=== PATIENT | male | born 1970 | race Caucasian/White ===

== ENCOUNTER 2023-06-18 10:07 | Inpatient (IN) | payer OTHER ==
[2023-06-18 11:08] VITALS: BMI 28.7
[2023-06-18] MEDS ORDERED: NALOXONE HCL 0.4 MG/ML VIAL IM PRN (12:39)
[2023-06-18] MEDS ORDERED: MAG HYDROX/AL HYDROX/SIMETH 30 ML UNIT-DOSE CUP PO PRN (12:39)
[2023-06-18] MEDS ORDERED: LOPERAMIDE HCL 2 MG CAPSULE PO PRN (12:39)
[2023-06-18] MEDS ORDERED: IBUPROFEN 400 MG TABLET (FP) PO PRN (12:39)
[2023-06-18] MEDS ORDERED: NALOXONE HCL (KLOXXADO) 8 MG SPRAY NS PRN (12:39)
[2023-06-18] MEDS ORDERED: MAGNESIUM HYDROX 2400MG/30ML ORAL SUSPENSION 30 ML CUP PO PRN (12:39)
[2023-06-18] MEDS ORDERED: ONDANSETRON *ODT* 4 MG TABLET SL PRN (12:39)
[2023-06-18] MEDS ORDERED: POLYETHYLENE GLYCOL (HEALTHYLAX) 3350 17 GM PACKET PO PRN (12:39)
[2023-06-18] MEDS ORDERED: IBUPROFEN 600 MG TABLET (FP) PO PRN (12:39)
[2023-06-18] MEDS ORDERED: BISMUTH SUBSALICYLATE 524 MG/30 ML PO PRN (12:39)
[2023-06-18] MEDS ORDERED: DICYCLOMINE HCL 10 MG CAPSULE PO PRN (12:39)
[2023-06-18] MEDS ORDERED: LORazepam 2 MG TABLET PO ONE (12:39)
[2023-06-18] MEDS ORDERED: LORazepam 1 MG TABLET PO PRN (12:39)
[2023-06-18] MEDS ORDERED: ACETAMINOPHEN 325 MG TABLET (FP) PO PRN (12:39)
[2023-06-18] MEDS ORDERED: BENZONATATE 200 MG CAPSULE PO PRN (12:39)
[2023-06-18] MEDS ORDERED: guaiFENesin 600 MG TABLET.ER (FP) PO PRN (12:39)
[2023-06-18] MEDS ORDERED: BENZOCAINE/MENTHOL (CHLORASEPTIC ) LOZENGE MM PRN (12:39)
[2023-06-18] MEDS: PRENATAL VITAMINS W/ FOLIC ACID TABLET (FP) PO SCH (13:14)
[2023-06-18] MEDS: NICOTINE 21 MG/24 HOURS TOPICAL PATCH TD SCH (13:14)
[2023-06-18] MEDS ORDERED: NICOTINE 21 MG/24 HOURS TOPICAL PATCH ONE (13:16)
[2023-06-18] MEDS ORDERED: LORazepam 2 MG TABLET ONE (13:17)
[2023-06-18] MEDS ORDERED: PRENATAL VITAMINS W/ FOLIC ACID TABLET (FP) PO ONE (13:17)
[2023-06-18 17:22] LABS: POTASSIUM 4.1 mmol/L (3.5-5.1)
[2023-06-18 17:25] LABS: ALBUMIN 3.6 g/dl (3.4-5.0); CALCIUM 8.8 mg/dL (8.5-10.1); HEMATOCRIT 40.9 % (35.4-49); HEMOGLOBIN 13.5 GM/dL (11.7-16.9); MCH 34.8 pg (25.7-33.7); MCHC 33.1 g/dl (32.0-35.9); MEAN CELL VOLUME 105.1 fl (80-96); MEAN PLT VOLUME 7.6 fl (7.5-11.1); PLATELET COUNT 188 10^3/uL (134-434); RBC 3.89 M/mm3 (4.00-5.60); RDW 13.9 % (11.9-15.9); WHITE BLOOD COUNT 6.8 K/mm3 (4.0-10.0)
[2023-06-18 17:26] LABS: BLOOD UREA NITROGEN 20.6 mg/dL (7-18)
[2023-06-18 17:29] LABS: CREATININE 0.9 mg/dL (0.55-1.3)
[2023-06-18 17:30] LABS: BILIRUBIN,TOTAL 0.6 mg/dL (0.2-1); TOT PROT 6.5 g/dl (6.4-8.2)
[2023-06-18] MEDS: LORazepam 2 MG TABLET PO SCH ×2 (17:39→22:07)
[2023-06-18] MEDS: MELATONIN 5 MG TABLETS PO SCH (22:07)
[2023-06-18] MEDS: THIAMINE HCL 100 MG TABLET (FP) PO SCH (22:07)
[2023-06-19] MEDS: LORazepam 2 MG TABLET PO SCH ×4 (05:54→22:02)
[2023-06-19] MEDS: NICOTINE 21 MG/24 HOURS TOPICAL PATCH TD SCH (10:21)
[2023-06-19] MEDS: PRENATAL VITAMINS W/ FOLIC ACID TABLET (FP) PO SCH (10:21)
[2023-06-19] MEDS: THIAMINE HCL 100 MG TABLET (FP) PO SCH (22:01)
[2023-06-19] MEDS: MELATONIN 5 MG TABLETS PO SCH (22:01)
[2023-06-19] MEDS: METHOCARBAMOL 500 MG TABLET PO PRN (22:01)
[2023-06-19] MEDS: hydrOXYzine PAMOATE 25 MG CAPSULE (FP) PO PRN (22:01)
[2023-06-20] MEDS: LORazepam 1 MG TABLET PO SCH ×4 (05:50→22:20)
[2023-06-20] MEDS: PRENATAL VITAMINS W/ FOLIC ACID TABLET (FP) PO SCH (10:29)
[2023-06-20] MEDS: NICOTINE 21 MG/24 HOURS TOPICAL PATCH TD SCH (10:29)
[2023-06-20] MEDS: METHOCARBAMOL 500 MG TABLET PO PRN (10:30)
[2023-06-20] MEDS: THIAMINE HCL 100 MG TABLET (FP) PO SCH (22:20)
[2023-06-20] MEDS: MELATONIN 5 MG TABLETS PO SCH (22:20)
[2023-06-21] MEDS ORDERED: LORazepam 0.5 MG TABLET PO PRN
[2023-06-21] MEDS: LORazepam 0.5 MG TABLET PO SCH ×4 (05:30→22:24)
[2023-06-21] MEDS: NICOTINE 21 MG/24 HOURS TOPICAL PATCH TD SCH (10:17)
[2023-06-21] MEDS: PRENATAL VITAMINS W/ FOLIC ACID TABLET (FP) PO SCH (10:17)
[2023-06-21] MEDS: LACTULOSE 20 GM/30 ML UDC (FOR ORAL USE ONLY) PO SCH ×2 (14:12→22:23)
[2023-06-21] MEDS: MELATONIN 5 MG TABLETS PO SCH (22:23)
[2023-06-21] MEDS: THIAMINE HCL 100 MG TABLET (FP) PO SCH (22:23)
[2023-06-21] MEDS: METHOCARBAMOL 500 MG TABLET PO PRN (22:23)
[2023-06-21] MEDS: hydrOXYzine PAMOATE 25 MG CAPSULE (FP) PO PRN (22:24)
[2023-06-22] MEDS ORDERED: LORazepam 0.5 MG TABLET PO ONE (05:00)
[2023-06-22] MEDS: LACTULOSE 20 GM/30 ML UDC (FOR ORAL USE ONLY) PO SCH ×2 (05:34→14:25)
[2023-06-22] MEDS: NICOTINE 21 MG/24 HOURS TOPICAL PATCH TD SCH (09:59)
[2023-06-22] MEDS: PRENATAL VITAMINS W/ FOLIC ACID TABLET (FP) PO SCH (09:59)
[2023-06-22 17:37] VITALS: BP 125/90; PULSE 83; RESP 18; TEMP 97.8
== END 2023-06-22 18:37 | disposition other institution (70) | DRG 775 ==
LOC: YASAS 10:07 → Y3N 13:46
PROVIDERS: ADMIT Allergy & Immunology; ATTEND Allergy & Immunology
PROC: HZ2ZZZZ Detoxification Services for Substance Abuse Treatment (ICD-10-PCS; principal; 2023-06-18)
DX: F10.230 Alcohol dependence with withdrawal, uncomplicated (principal); F17.210 Nicotine dependence, cigarettes, uncomplicated; F41.1 Generalized anxiety disorder; F33.41 Major depressive disorder, recurrent, in partial remission; F43.10 Post-traumatic stress disorder, unspecified; F41.9 Anxiety disorder, unspecified; E72.20 Disorder of urea cycle metabolism, unspecified; K76.0 Fatty (change of) liver, not elsewhere classified; Z86.59 Personal history of other mental and behavioral disorders; Z91.199 Patient's noncompliance with other medical treatment and regimen due to unspecified reason; Z86.11 Personal history of tuberculosis; Z56.0 Unemployment, unspecified
CPT/HCPCS: 36415; 71045-TC-FY; 80053; 82140; 85027; 86780; 87635; 93005; 93010

== ENCOUNTER 2023-06-22 18:45 | Inpatient (IN) | payer OTHER ==
[2023-06-22] MEDS ORDERED: ACETAMINOPHEN 325 MG TABLET (FP) PO PRN (20:50)
[2023-06-22] MEDS ORDERED: guaiFENesin 600 MG TABLET.ER (FP) PO PRN (20:50)
[2023-06-22] MEDS ORDERED: BENZOCAINE/MENTHOL (CHLORASEPTIC ) LOZENGE MM PRN (20:50)
[2023-06-22] MEDS ORDERED: MAGNESIUM HYDROX 2400MG/30ML ORAL SUSPENSION 30 ML CUP PO PRN (20:50)
[2023-06-22] MEDS ORDERED: NICOTINE POLACRILEX 2 MG GUM BUC PRN (20:50)
[2023-06-22] MEDS ORDERED: POLYETHYLENE GLYCOL (HEALTHYLAX) 3350 17 GM PACKET PO PRN (20:50)
[2023-06-22] MEDS ORDERED: AMMONIUM LACTATE 12% LOTION 225 GM BOTTLE TP PRN (20:50)
[2023-06-22] MEDS ORDERED: LOPERAMIDE HCL 2 MG CAPSULE PO PRN (20:50)
[2023-06-22] MEDS ORDERED: IBUPROFEN 600 MG TABLET (FP) PO PRN (20:50)
[2023-06-22] MEDS ORDERED: BENZONATATE 200 MG CAPSULE PO PRN (20:50)
[2023-06-22] MEDS ORDERED: MAG HYDROX/AL HYDROX/SIMETH 30 ML UNIT-DOSE CUP PO PRN (20:50)
[2023-06-22] MEDS ORDERED: P-EPHED 60MG/TRIPROLIDI 2.5MG TABLET PO PRN (20:50)
[2023-06-22] MEDS ORDERED: COLLOIDAL OATMEAL 1 BAR EACH TP PRN (20:50)
[2023-06-22] MEDS ORDERED: MELATONIN 5 MG TABLETS PO SCH (22:00)
[2023-06-22] MEDS: THIAMINE HCL 100 MG TABLET (FP) PO SCH (22:27)
[2023-06-22] MEDS: METHOCARBAMOL 500 MG TABLET PO PRN (22:27)
[2023-06-22] MEDS: hydrOXYzine PAMOATE 25 MG CAPSULE (FP) PO PRN (22:28)
[2023-06-23] MEDS ORDERED: PANTOPRAZOLE 20 MG TABLET PO PRN (08:27)
[2023-06-23] MEDS ORDERED: MELATONIN 5 MG TABLETS PO SCH (08:30)
[2023-06-23] MEDS: PRENATAL VITAMINS W/ FOLIC ACID TABLET (FP) PO SCH (09:47)
[2023-06-23] MEDS: IBUPROFEN 400 MG TABLET (FP) PO PRN (11:28)
[2023-06-23] MEDS: LACTULOSE 20 GM/30 ML UDC (FOR ORAL USE ONLY) PO SCH ×2 (13:36→21:03)
[2023-06-23] MEDS ORDERED: PANTOPRAZOLE 20 MG TABLET PO SCH (13:45)
[2023-06-23 13:53] LABS: BASO % 0.8 % (0-2.0); EOS % 6.8 % (0-4.5); LYMPH % 19.8 % (8-40); MCH 34.4 pg (25.7-33.7); MCHC 32.4 g/dl (32.0-35.9); MEAN CELL VOLUME 106.1 fl (80-96); MEAN PLT VOLUME 8.3 fl (7.5-11.1); NEUT % 65.6 % (42.8-82.8); PLATELET COUNT 189 10^3/uL (134-434); RBC 4.06 M/mm3 (4.00-5.60); RDW 13.6 % (11.9-15.9); WHITE BLOOD COUNT 7.7 K/mm3 (4.0-10.0)
[2023-06-23 13:59] LABS: INR 0.9 (0.83-1.09); PROTHROMBIN TIME (PATIENT) 10.4 SEC (9.7-13.0)
[2023-06-23 14:24] LABS: ANISOCYTOSIS 2+; MACROCYTOSIS 2+
[2023-06-23 14:35] LABS: BLOOD UREA NITROGEN 13.3 mg/dL (7-18); CALCIUM 9.4 mg/dL (8.5-10.1)
[2023-06-23 14:36] LABS: ALBUMIN 3.5 g/dl (3.4-5.0); MAGNESIUM 2.1 mg/dL (1.8-2.4)
[2023-06-23 14:40] LABS: BILIRUBIN,TOTAL 0.4 mg/dL (0.2-1)
[2023-06-23 15:11] LABS: CREATININE 0.9 mg/dL (0.55-1.3); TOT PROT 6.1 g/dl (6.4-8.2)
[2023-06-23] MEDS: THIAMINE HCL 100 MG TABLET (FP) PO SCH (21:02)
[2023-06-23] MEDS: SUVOREXANT 10 MG TABLET PO PRN (21:04)
[2023-06-23] MEDS: METHOCARBAMOL 500 MG TABLET PO PRN (21:05)
[2023-06-24] MEDS: LACTULOSE 20 GM/30 ML UDC (FOR ORAL USE ONLY) PO SCH ×3 (06:10→21:08)
[2023-06-24] MEDS: FAMOTIDINE 20 MG TABLET PO SCH (09:57)
[2023-06-24] MEDS: PARoxetine HCL 10 MG TABLET PO SCH (09:57)
[2023-06-24] MEDS: PRENATAL VITAMINS W/ FOLIC ACID TABLET (FP) PO SCH (09:58)
[2023-06-24] MEDS: NICOTINE 21 MG/24 HOURS TOPICAL PATCH TD SCH (11:30)
[2023-06-24] MEDS: SUVOREXANT 10 MG TABLET PO PRN (21:08)
[2023-06-24] MEDS: THIAMINE HCL 100 MG TABLET (FP) PO SCH (21:08)
[2023-06-24] MEDS: METHOCARBAMOL 500 MG TABLET PO PRN (21:09)
[2023-06-25] MEDS: LACTULOSE 20 GM/30 ML UDC (FOR ORAL USE ONLY) PO SCH ×3 (05:58→21:29)
[2023-06-25] MEDS: PRENATAL VITAMINS W/ FOLIC ACID TABLET (FP) PO SCH (09:56)
[2023-06-25] MEDS: PARoxetine HCL 10 MG TABLET PO SCH (09:56)
[2023-06-25] MEDS: FAMOTIDINE 20 MG TABLET PO SCH (09:56)
[2023-06-25] MEDS: NICOTINE 21 MG/24 HOURS TOPICAL PATCH TD SCH (09:56)
[2023-06-25] MEDS: THIAMINE HCL 100 MG TABLET (FP) PO SCH (21:29)
[2023-06-25] MEDS: METHOCARBAMOL 500 MG TABLET PO PRN (21:30)
[2023-06-26] MEDS: LACTULOSE 20 GM/30 ML UDC (FOR ORAL USE ONLY) PO SCH ×3 (06:17→21:09)
[2023-06-26] MEDS: PRENATAL VITAMINS W/ FOLIC ACID TABLET (FP) PO SCH (10:01)
[2023-06-26] MEDS: FAMOTIDINE 20 MG TABLET PO SCH (10:01)
[2023-06-26] MEDS: PARoxetine HCL 10 MG TABLET PO SCH (10:02)
[2023-06-26] MEDS: NICOTINE 21 MG/24 HOURS TOPICAL PATCH TD SCH (10:02)
[2023-06-26] MEDS: THIAMINE HCL 100 MG TABLET (FP) PO SCH (21:08)
[2023-06-26] MEDS: SUVOREXANT 10 MG TABLET PO PRN (21:08)
[2023-06-26] MEDS: METHOCARBAMOL 500 MG TABLET PO PRN (21:08)
[2023-06-27] MEDS: LACTULOSE 20 GM/30 ML UDC (FOR ORAL USE ONLY) PO SCH ×3 (06:04→21:13)
[2023-06-27] MEDS: NICOTINE 21 MG/24 HOURS TOPICAL PATCH TD SCH (09:36)
[2023-06-27] MEDS: FAMOTIDINE 20 MG TABLET PO SCH (09:37)
[2023-06-27] MEDS: PARoxetine HCL 10 MG TABLET PO SCH (09:37)
[2023-06-27] MEDS: PRENATAL VITAMINS W/ FOLIC ACID TABLET (FP) PO SCH (09:37)
[2023-06-27] MEDS: THIAMINE HCL 100 MG TABLET (FP) PO SCH (21:11)
[2023-06-27] MEDS: SUVOREXANT 10 MG TABLET PO PRN (21:12)
[2023-06-27] MEDS: METHOCARBAMOL 500 MG TABLET PO PRN (21:12)
[2023-06-28] MEDS: LACTULOSE 20 GM/30 ML UDC (FOR ORAL USE ONLY) PO SCH ×3 (06:26→21:12)
[2023-06-28] MEDS: PARoxetine HCL 10 MG TABLET PO SCH (09:49)
[2023-06-28] MEDS: PRENATAL VITAMINS W/ FOLIC ACID TABLET (FP) PO SCH (09:49)
[2023-06-28] MEDS: NICOTINE 21 MG/24 HOURS TOPICAL PATCH TD SCH (09:49)
[2023-06-28] MEDS: FAMOTIDINE 20 MG TABLET PO SCH (09:49)
[2023-06-28] MEDS: THIAMINE HCL 100 MG TABLET (FP) PO SCH (21:12)
[2023-06-28] MEDS: SUVOREXANT 10 MG TABLET PO PRN (21:13)
[2023-06-29] MEDS: LACTULOSE 20 GM/30 ML UDC (FOR ORAL USE ONLY) PO SCH ×3 (06:11→21:27)
[2023-06-29] MEDS: NICOTINE 21 MG/24 HOURS TOPICAL PATCH TD SCH (09:49)
[2023-06-29] MEDS: PRENATAL VITAMINS W/ FOLIC ACID TABLET (FP) PO SCH (09:50)
[2023-06-29] MEDS: FAMOTIDINE 20 MG TABLET PO SCH (09:50)
[2023-06-29] MEDS: PARoxetine HCL 10 MG TABLET PO SCH (09:50)
[2023-06-29] MEDS: SUVOREXANT 10 MG TABLET PO PRN (21:28)
[2023-06-29] MEDS: THIAMINE HCL 100 MG TABLET (FP) PO SCH (21:28)
[2023-06-30] MEDS: LACTULOSE 20 GM/30 ML UDC (FOR ORAL USE ONLY) PO SCH ×3 (06:09→21:34)
[2023-06-30] MEDS: PARoxetine HCL 10 MG TABLET PO SCH (09:46)
[2023-06-30] MEDS: FAMOTIDINE 20 MG TABLET PO SCH (09:46)
[2023-06-30] MEDS: PRENATAL VITAMINS W/ FOLIC ACID TABLET (FP) PO SCH (09:47)
[2023-06-30] MEDS: NICOTINE 21 MG/24 HOURS TOPICAL PATCH TD SCH (09:47)
[2023-06-30 14:08] LABS: POTASSIUM 4.5 mmol/L (3.5-5.1)
[2023-06-30 14:13] LABS: CALCIUM 9.9 mg/dL (8.5-10.1)
[2023-06-30 14:14] LABS: BLOOD UREA NITROGEN 11.9 mg/dL (7-18)
[2023-06-30 14:19] LABS: BILIRUBIN,TOTAL 0.4 mg/dL (0.2-1); TOT PROT 7.3 g/dl (6.4-8.2)
[2023-06-30] MEDS: THIAMINE HCL 100 MG TABLET (FP) PO SCH (21:34)
[2023-06-30] MEDS: SUVOREXANT 10 MG TABLET PO PRN (21:35)
[2023-07-01] MEDS: LACTULOSE 20 GM/30 ML UDC (FOR ORAL USE ONLY) PO SCH ×3 (06:07→21:50)
[2023-07-01] MEDS: NICOTINE 21 MG/24 HOURS TOPICAL PATCH TD SCH (09:57)
[2023-07-01] MEDS: PRENATAL VITAMINS W/ FOLIC ACID TABLET (FP) PO SCH (09:58)
[2023-07-01] MEDS: PARoxetine HCL 10 MG TABLET PO SCH (09:58)
[2023-07-01] MEDS: FAMOTIDINE 20 MG TABLET PO SCH (09:58)
[2023-07-01] MEDS: THIAMINE HCL 100 MG TABLET (FP) PO SCH (21:50)
[2023-07-01] MEDS: SUVOREXANT 10 MG TABLET PO PRN (21:50)
[2023-07-02] MEDS: LACTULOSE 20 GM/30 ML UDC (FOR ORAL USE ONLY) PO SCH ×3 (06:17→21:32)
[2023-07-02] MEDS: PRENATAL VITAMINS W/ FOLIC ACID TABLET (FP) PO SCH (09:56)
[2023-07-02] MEDS: NICOTINE 21 MG/24 HOURS TOPICAL PATCH TD SCH (09:56)
[2023-07-02] MEDS: FAMOTIDINE 20 MG TABLET PO SCH (09:56)
[2023-07-02] MEDS: PARoxetine HCL 10 MG TABLET PO SCH (10:08)
[2023-07-02] MEDS: THIAMINE HCL 100 MG TABLET (FP) PO SCH (21:32)
[2023-07-02] MEDS: SUVOREXANT 10 MG TABLET PO PRN (21:33)
[2023-07-03] MEDS: LACTULOSE 20 GM/30 ML UDC (FOR ORAL USE ONLY) PO SCH ×3 (06:38→21:29)
[2023-07-03] MEDS: PARoxetine HCL 10 MG TABLET PO SCH (10:03)
[2023-07-03] MEDS: FAMOTIDINE 20 MG TABLET PO SCH (10:04)
[2023-07-03] MEDS: NICOTINE 21 MG/24 HOURS TOPICAL PATCH TD SCH (10:04)
[2023-07-03] MEDS: PRENATAL VITAMINS W/ FOLIC ACID TABLET (FP) PO SCH (10:04)
[2023-07-03] MEDS: THIAMINE HCL 100 MG TABLET (FP) PO SCH (21:29)
[2023-07-03] MEDS: SUVOREXANT 10 MG TABLET PO PRN (21:30)
[2023-07-04] MEDS: LACTULOSE 20 GM/30 ML UDC (FOR ORAL USE ONLY) PO SCH ×3 (06:19→21:29)
[2023-07-04] MEDS: NICOTINE 21 MG/24 HOURS TOPICAL PATCH TD SCH (09:44)
[2023-07-04] MEDS: PARoxetine HCL 10 MG TABLET PO SCH (09:44)
[2023-07-04] MEDS: FAMOTIDINE 20 MG TABLET PO SCH (09:44)
[2023-07-04] MEDS: PRENATAL VITAMINS W/ FOLIC ACID TABLET (FP) PO SCH (09:45)
[2023-07-04] MEDS: THIAMINE HCL 100 MG TABLET (FP) PO SCH (21:29)
[2023-07-04] MEDS: SUVOREXANT 10 MG TABLET PO PRN (21:30)
[2023-07-05] MEDS: LACTULOSE 20 GM/30 ML UDC (FOR ORAL USE ONLY) PO SCH ×3 (06:17→21:43)
[2023-07-05] MEDS: NICOTINE 21 MG/24 HOURS TOPICAL PATCH TD SCH (09:54)
[2023-07-05] MEDS: FAMOTIDINE 20 MG TABLET PO SCH (09:55)
[2023-07-05] MEDS: PARoxetine HCL 10 MG TABLET PO SCH (09:55)
[2023-07-05] MEDS: PRENATAL VITAMINS W/ FOLIC ACID TABLET (FP) PO SCH (09:55)
[2023-07-05] MEDS: SUVOREXANT 10 MG TABLET PO PRN (21:42)
[2023-07-05] MEDS: THIAMINE HCL 100 MG TABLET (FP) PO SCH (21:43)
[2023-07-05] MEDS: hydrOXYzine PAMOATE 25 MG CAPSULE (FP) PO PRN (21:43)
[2023-07-06] MEDS: LACTULOSE 20 GM/30 ML UDC (FOR ORAL USE ONLY) PO SCH ×3 (06:22→21:27)
[2023-07-06] MEDS: PARoxetine HCL 10 MG TABLET PO SCH (09:42)
[2023-07-06] MEDS: FAMOTIDINE 20 MG TABLET PO SCH (09:42)
[2023-07-06] MEDS: PRENATAL VITAMINS W/ FOLIC ACID TABLET (FP) PO SCH (09:42)
[2023-07-06] MEDS: NICOTINE 21 MG/24 HOURS TOPICAL PATCH TD SCH (09:42)
[2023-07-06] MEDS: hydrOXYzine PAMOATE 25 MG CAPSULE (FP) PO PRN (21:28)
[2023-07-06] MEDS: THIAMINE HCL 100 MG TABLET (FP) PO SCH (21:28)
[2023-07-06] MEDS: SUVOREXANT 10 MG TABLET PO PRN (21:28)
[2023-07-07] MEDS: LACTULOSE 20 GM/30 ML UDC (FOR ORAL USE ONLY) PO SCH ×3 (06:23→21:27)
[2023-07-07] MEDS: NICOTINE 21 MG/24 HOURS TOPICAL PATCH TD SCH (09:48)
[2023-07-07] MEDS: PARoxetine HCL 10 MG TABLET PO SCH (09:48)
[2023-07-07] MEDS: FAMOTIDINE 20 MG TABLET PO SCH (09:48)
[2023-07-07] MEDS: PRENATAL VITAMINS W/ FOLIC ACID TABLET (FP) PO SCH (09:48)
[2023-07-07] MEDS: hydrOXYzine PAMOATE 25 MG CAPSULE (FP) PO PRN (21:27)
[2023-07-07] MEDS: THIAMINE HCL 100 MG TABLET (FP) PO SCH (21:27)
[2023-07-07] MEDS: SUVOREXANT 10 MG TABLET PO PRN (21:27)
[2023-07-08] MEDS: LACTULOSE 20 GM/30 ML UDC (FOR ORAL USE ONLY) PO SCH ×3 (06:38→21:21)
[2023-07-08] MEDS: NICOTINE 21 MG/24 HOURS TOPICAL PATCH TD SCH (09:48)
[2023-07-08] MEDS: PARoxetine HCL 10 MG TABLET PO SCH (09:48)
[2023-07-08] MEDS: FAMOTIDINE 20 MG TABLET PO SCH (09:48)
[2023-07-08] MEDS: PRENATAL VITAMINS W/ FOLIC ACID TABLET (FP) PO SCH (09:49)
[2023-07-08] MEDS ORDERED: NALTREXONE HCL 50 MG TABLET PO SCH (10:00)
[2023-07-08] MEDS: NALTREXONE HCL 50 MG TABLET PO SCH (12:07)
[2023-07-08] MEDS: THIAMINE HCL 100 MG TABLET (FP) PO SCH (21:21)
[2023-07-08] MEDS: SUVOREXANT 10 MG TABLET PO PRN (21:22)
[2023-07-08] MEDS: hydrOXYzine PAMOATE 25 MG CAPSULE (FP) PO PRN (21:23)
[2023-07-09] MEDS: LACTULOSE 20 GM/30 ML UDC (FOR ORAL USE ONLY) PO SCH ×3 (06:39→21:40)
[2023-07-09] MEDS: NICOTINE 21 MG/24 HOURS TOPICAL PATCH TD SCH (10:03)
[2023-07-09] MEDS: PRENATAL VITAMINS W/ FOLIC ACID TABLET (FP) PO SCH (10:03)
[2023-07-09] MEDS: PARoxetine HCL 10 MG TABLET PO SCH (10:03)
[2023-07-09] MEDS: NALTREXONE HCL 50 MG TABLET PO SCH (10:03)
[2023-07-09] MEDS: FAMOTIDINE 20 MG TABLET PO SCH (10:03)
[2023-07-09] MEDS: THIAMINE HCL 100 MG TABLET (FP) PO SCH (21:40)
[2023-07-09] MEDS: hydrOXYzine PAMOATE 25 MG CAPSULE (FP) PO PRN (21:41)
[2023-07-09] MEDS: SUVOREXANT 10 MG TABLET PO PRN (21:41)
[2023-07-10] MEDS: LACTULOSE 20 GM/30 ML UDC (FOR ORAL USE ONLY) PO SCH ×3 (06:16→21:52)
[2023-07-10] MEDS: NICOTINE 21 MG/24 HOURS TOPICAL PATCH TD SCH (09:35)
[2023-07-10] MEDS: NALTREXONE HCL 50 MG TABLET PO SCH (09:36)
[2023-07-10] MEDS: FAMOTIDINE 20 MG TABLET PO SCH (09:36)
[2023-07-10] MEDS: PARoxetine HCL 10 MG TABLET PO SCH (09:36)
[2023-07-10] MEDS: PRENATAL VITAMINS W/ FOLIC ACID TABLET (FP) PO SCH (09:36)
[2023-07-10] MEDS: THIAMINE HCL 100 MG TABLET (FP) PO SCH (21:52)
[2023-07-10] MEDS: SUVOREXANT 10 MG TABLET PO PRN (21:55)
[2023-07-10] MEDS: hydrOXYzine PAMOATE 25 MG CAPSULE (FP) PO PRN (21:55)
[2023-07-11] MEDS: LACTULOSE 20 GM/30 ML UDC (FOR ORAL USE ONLY) PO SCH ×3 (06:17→21:07)
[2023-07-11] MEDS: PARoxetine HCL 10 MG TABLET PO SCH (09:47)
[2023-07-11] MEDS: NICOTINE 21 MG/24 HOURS TOPICAL PATCH TD SCH (09:47)
[2023-07-11] MEDS: NALTREXONE HCL 50 MG TABLET PO SCH (09:47)
[2023-07-11] MEDS: FAMOTIDINE 20 MG TABLET PO SCH (09:47)
[2023-07-11] MEDS: PRENATAL VITAMINS W/ FOLIC ACID TABLET (FP) PO SCH (09:48)
[2023-07-11] MEDS: THIAMINE HCL 100 MG TABLET (FP) PO SCH (21:07)
[2023-07-11] MEDS: hydrOXYzine PAMOATE 25 MG CAPSULE (FP) PO PRN (21:09)
[2023-07-11] MEDS: SUVOREXANT 10 MG TABLET PO PRN (21:44)
[2023-07-12] MEDS: LACTULOSE 20 GM/30 ML UDC (FOR ORAL USE ONLY) PO SCH ×3 (06:17→21:25)
[2023-07-12] MEDS: FAMOTIDINE 20 MG TABLET PO SCH (09:46)
[2023-07-12] MEDS: PRENATAL VITAMINS W/ FOLIC ACID TABLET (FP) PO SCH (09:46)
[2023-07-12] MEDS: NALTREXONE HCL 50 MG TABLET PO SCH (09:46)
[2023-07-12] MEDS: NICOTINE 21 MG/24 HOURS TOPICAL PATCH TD SCH (09:46)
[2023-07-12] MEDS: PARoxetine HCL 10 MG TABLET PO SCH (09:46)
[2023-07-12] MEDS: THIAMINE HCL 100 MG TABLET (FP) PO SCH (21:26)
[2023-07-12] MEDS: hydrOXYzine PAMOATE 25 MG CAPSULE (FP) PO PRN (21:26)
[2023-07-12] MEDS: SUVOREXANT 10 MG TABLET PO PRN (21:27)
[2023-07-13] MEDS: LACTULOSE 20 GM/30 ML UDC (FOR ORAL USE ONLY) PO SCH ×3 (06:18→21:21)
[2023-07-13] MEDS: FAMOTIDINE 20 MG TABLET PO SCH (10:05)
[2023-07-13] MEDS: PRENATAL VITAMINS W/ FOLIC ACID TABLET (FP) PO SCH (10:06)
[2023-07-13] MEDS: NALTREXONE HCL 50 MG TABLET PO SCH (10:06)
[2023-07-13] MEDS: NICOTINE 21 MG/24 HOURS TOPICAL PATCH TD SCH (10:06)
[2023-07-13] MEDS: IBUPROFEN 400 MG TABLET (FP) PO PRN (12:02)
[2023-07-13] MEDS: PARoxetine HCL 10 MG TABLET PO SCH (12:02)
[2023-07-13] MEDS: SUVOREXANT 10 MG TABLET PO PRN (21:21)
[2023-07-13] MEDS: THIAMINE HCL 100 MG TABLET (FP) PO SCH (21:21)
[2023-07-13] MEDS: hydrOXYzine PAMOATE 25 MG CAPSULE (FP) PO PRN (21:21)
[2023-07-14] MEDS: LACTULOSE 20 GM/30 ML UDC (FOR ORAL USE ONLY) PO SCH ×3 (06:20→22:20)
[2023-07-14] MEDS: NICOTINE 21 MG/24 HOURS TOPICAL PATCH TD SCH (10:06)
[2023-07-14] MEDS: PARoxetine HCL 10 MG TABLET PO SCH (10:07)
[2023-07-14] MEDS: PRENATAL VITAMINS W/ FOLIC ACID TABLET (FP) PO SCH (10:07)
[2023-07-14] MEDS: FAMOTIDINE 20 MG TABLET PO SCH (10:07)
[2023-07-14] MEDS: NALTREXONE HCL 50 MG TABLET PO SCH (10:07)
[2023-07-14] MEDS: SUVOREXANT 10 MG TABLET PO PRN (22:20)
[2023-07-14] MEDS: THIAMINE HCL 100 MG TABLET (FP) PO SCH (22:20)
[2023-07-14] MEDS: hydrOXYzine PAMOATE 25 MG CAPSULE (FP) PO PRN (22:21)
[2023-07-15] MEDS: LACTULOSE 20 GM/30 ML UDC (FOR ORAL USE ONLY) PO SCH ×3 (06:13→21:22)
[2023-07-15] MEDS: FAMOTIDINE 20 MG TABLET PO SCH (09:40)
[2023-07-15] MEDS: PARoxetine HCL 10 MG TABLET PO SCH (09:40)
[2023-07-15] MEDS: NICOTINE 21 MG/24 HOURS TOPICAL PATCH TD SCH (09:40)
[2023-07-15] MEDS: PRENATAL VITAMINS W/ FOLIC ACID TABLET (FP) PO SCH (09:41)
[2023-07-15] MEDS: NALTREXONE HCL 50 MG TABLET PO SCH (09:41)
[2023-07-15] MEDS: THIAMINE HCL 100 MG TABLET (FP) PO SCH (21:22)
[2023-07-15] MEDS: SUVOREXANT 10 MG TABLET PO PRN (21:23)
[2023-07-15] MEDS: hydrOXYzine PAMOATE 25 MG CAPSULE (FP) PO PRN (21:23)
[2023-07-16] MEDS: LACTULOSE 20 GM/30 ML UDC (FOR ORAL USE ONLY) PO SCH ×3 (06:27→21:25)
[2023-07-16] MEDS: PARoxetine HCL 10 MG TABLET PO SCH (09:26)
[2023-07-16] MEDS: FAMOTIDINE 20 MG TABLET PO SCH (09:26)
[2023-07-16] MEDS: NICOTINE 21 MG/24 HOURS TOPICAL PATCH TD SCH (09:26)
[2023-07-16] MEDS: PRENATAL VITAMINS W/ FOLIC ACID TABLET (FP) PO SCH (09:27)
[2023-07-16] MEDS: NALTREXONE HCL 50 MG TABLET PO SCH (09:27)
[2023-07-16] MEDS: hydrOXYzine PAMOATE 25 MG CAPSULE (FP) PO PRN (21:25)
[2023-07-16] MEDS: THIAMINE HCL 100 MG TABLET (FP) PO SCH (21:25)
[2023-07-16] MEDS: SUVOREXANT 10 MG TABLET PO PRN (21:26)
[2023-07-17] MEDS: LACTULOSE 20 GM/30 ML UDC (FOR ORAL USE ONLY) PO SCH ×3 (06:19→21:25)
[2023-07-17] MEDS: PRENATAL VITAMINS W/ FOLIC ACID TABLET (FP) PO SCH (09:55)
[2023-07-17] MEDS: NALTREXONE HCL 50 MG TABLET PO SCH (09:55)
[2023-07-17] MEDS: FAMOTIDINE 20 MG TABLET PO SCH (09:55)
[2023-07-17] MEDS: NICOTINE 21 MG/24 HOURS TOPICAL PATCH TD SCH (09:55)
[2023-07-17] MEDS: PARoxetine HCL 10 MG TABLET PO SCH (09:55)
[2023-07-17] MEDS: hydrOXYzine PAMOATE 25 MG CAPSULE (FP) PO PRN (21:25)
[2023-07-17] MEDS: THIAMINE HCL 100 MG TABLET (FP) PO SCH (21:25)
[2023-07-18] MEDS: LACTULOSE 20 GM/30 ML UDC (FOR ORAL USE ONLY) PO SCH ×3 (06:24→21:32)
[2023-07-18] MEDS: NALTREXONE HCL 50 MG TABLET PO SCH (09:46)
[2023-07-18] MEDS: PRENATAL VITAMINS W/ FOLIC ACID TABLET (FP) PO SCH (09:46)
[2023-07-18] MEDS: FAMOTIDINE 20 MG TABLET PO SCH (09:46)
[2023-07-18] MEDS: NICOTINE 21 MG/24 HOURS TOPICAL PATCH TD SCH (09:46)
[2023-07-18] MEDS: PARoxetine HCL 10 MG TABLET PO SCH (09:46)
[2023-07-18] MEDS: THIAMINE HCL 100 MG TABLET (FP) PO SCH (21:32)
[2023-07-18] MEDS: hydrOXYzine PAMOATE 25 MG CAPSULE (FP) PO PRN (21:32)
[2023-07-19] MEDS: LACTULOSE 20 GM/30 ML UDC (FOR ORAL USE ONLY) PO SCH (06:14)
[2023-07-19 07:33] VITALS: BP 105/75; PULSE 100; RESP 18; TEMP 96.6
[2023-07-19] MEDS ORDERED: NALTREXONE MICROSPHERES (VIVITROL) 380 MG DISP.SYRIN IM ONE (08:41)
[2023-07-19] MEDS: PARoxetine HCL 10 MG TABLET PO SCH (09:09)
[2023-07-19] MEDS: PRENATAL VITAMINS W/ FOLIC ACID TABLET (FP) PO SCH (09:10)
[2023-07-19] MEDS: FAMOTIDINE 20 MG TABLET PO SCH (09:10)
[2023-07-19] MEDS: NICOTINE 21 MG/24 HOURS TOPICAL PATCH TD SCH (09:10)
[2023-07-19] MEDS: NALTREXONE HCL 50 MG TABLET PO SCH (09:11)
== END 2023-07-19 09:18 | disposition home or self-care (01) | DRG 772 ==
LOC: YASAS 18:45 → Y3E 18:46
PROVIDERS: ADMIT Allergy & Immunology; ATTEND Psychiatry & Neurology Pain Medicine
PROC: HZ42ZZZ Group Counseling for Substance Abuse Treatment, Cognitive-Behavioral (ICD-10-PCS; principal; 2023-06-22)
DX: F10.20 Alcohol dependence, uncomplicated (principal); F17.210 Nicotine dependence, cigarettes, uncomplicated; F32.9 Major depressive disorder, single episode, unspecified; F41.9 Anxiety disorder, unspecified; F43.10 Post-traumatic stress disorder, unspecified; E72.20 Disorder of urea cycle metabolism, unspecified; K76.0 Fatty (change of) liver, not elsewhere classified; R79.89 Other specified abnormal findings of blood chemistry; Z86.11 Personal history of tuberculosis
CPT/HCPCS: 36415; 80053; 82140; 82272; 82607; 82652; 82746; 83735; 85025; 85610; 86803; J2315

== ENCOUNTER 2023-10-25 16:25 | Inpatient (IN) | payer OTHER ==
[2023-10-25 17:14] VITALS: BMI 28.2
[2023-10-25] MEDS ORDERED: IBUPROFEN 600 MG TABLET (FP) PO PRN (21:43)
[2023-10-25] MEDS ORDERED: P-EPHED 60MG/TRIPROLIDI 2.5MG TABLET PO PRN (21:43)
[2023-10-25] MEDS ORDERED: ACETAMINOPHEN 325 MG TABLET (FP) PO PRN (21:43)
[2023-10-25] MEDS ORDERED: POLYETHYLENE GLYCOL (HEALTHYLAX) 3350 17 GM PACKET PO PRN (21:43)
[2023-10-25] MEDS ORDERED: BENZONATATE 200 MG CAPSULE PO PRN (21:43)
[2023-10-25] MEDS ORDERED: BENZOCAINE/MENTHOL (CHLORASEPTIC ) LOZENGE MM PRN (21:43)
[2023-10-25] MEDS ORDERED: IBUPROFEN 400 MG TABLET (FP) PO PRN (21:43)
[2023-10-25] MEDS ORDERED: MAG HYDROX/AL HYDROX/SIMETH 30 ML UNIT-DOSE CUP PO PRN (21:43)
[2023-10-25] MEDS ORDERED: MAGNESIUM HYDROX 2400MG/30ML ORAL SUSPENSION 30 ML CUP PO PRN (21:43)
[2023-10-25] MEDS ORDERED: COLLOIDAL OATMEAL 1 BAR EACH TP PRN (21:43)
[2023-10-25] MEDS ORDERED: guaiFENesin 600 MG TABLET.ER (FP) PO PRN (21:43)
[2023-10-25] MEDS ORDERED: LOPERAMIDE HCL 2 MG CAPSULE PO PRN (21:43)
[2023-10-25] MEDS ORDERED: MELATONIN 5 MG TABLETS PO SCH (22:00)
[2023-10-25] MEDS ORDERED: MELATONIN 5 MG TABLETS ONE (23:19)
[2023-10-25] MEDS: THIAMINE HCL 100 MG TABLET (FP) PO SCH (23:20)
[2023-10-26] MEDS: PRENATAL VITAMINS W/ FOLIC ACID TABLET (FP) PO SCH (09:52)
[2023-10-26 13:15] LABS: HEMATOCRIT 40.8 % (35.4-49); HEMOGLOBIN 13.7 GM/dL (11.7-16.9); MCH 31.7 pg (25.7-33.7); MCHC 33.5 g/dl (32.0-35.9); MEAN CELL VOLUME 94.7 fl (80-96); MEAN PLT VOLUME 7.4 fl (7.5-11.1); PLATELET COUNT 228 10^3/uL (134-434); RBC 4.32 M/mm3 (4.00-5.60); RDW 15.5 % (11.9-15.9); WHITE BLOOD COUNT 5.1 K/mm3 (4.0-10.0)
[2023-10-26 13:16] LABS: CHLORIDE 104 mmol/L (98-107); POTASSIUM 3.9 mmol/L (3.5-5.1); SODIUM 139 mmol/L (136-145)
[2023-10-26 13:21] LABS: BLOOD UREA NITROGEN 18.4 mg/dL (7-18)
[2023-10-26 13:22] LABS: CALCIUM 9.6 mg/dL (8.5-10.1); GLUCOSE,RANDOM 148 mg/dL (74-106)
[2023-10-26 13:23] LABS: ALBUMIN 3.4 g/dl (3.4-5.0); ANION GAP 7 mmol/L (4-13); CO2 29 mmol/L (21-32)
[2023-10-26 13:24] LABS: SGPT/ALT 159 U/L (13-61)
[2023-10-26 13:25] LABS: CREATININE 0.9 mg/dL (0.55-1.3)
[2023-10-26 13:26] LABS: BILIRUBIN,TOTAL 0.7 mg/dL (0.2-1); SGOT/AST 85 U/L (15-37); TOT PROT 6.2 g/dl (6.4-8.2)
[2023-10-26 13:30] LABS: ALK PHOS 114 U/L (45-117)
[2023-10-26] MEDS: PARoxetine HCL 10 MG TABLET PO SCH (14:43)
[2023-10-26] MEDS: THIAMINE HCL 100 MG TABLET (FP) PO SCH (21:30)
[2023-10-27 07:16] VITALS: RESP 18
[2023-10-27] MEDS: PRENATAL VITAMINS W/ FOLIC ACID TABLET (FP) PO SCH (09:32)
[2023-10-27] MEDS: PARoxetine HCL 10 MG TABLET PO SCH (09:32)
[2023-10-27 13:39] LABS: URINE APPEARANCE CLEAR; URINE BILIRUBIN NEGATIVE (NEGATIVE); URINE COLOR YELLOW; URINE GLUCOSE (UA) NEGATIVE (NEGATIVE); URINE KETONE NEGATIVE (NEGATIVE); URINE LEUK ESTERASE NEGATIVE (NEGATIVE); URINE NITRITE NEGATIVE (NEGATIVE); URINE PROTEIN NEGATIVE (NEGATIVE); URINE UROBILINOGEN 0.2 mg/dL (0.2-1.0)
[2023-10-27] MEDS: LACTULOSE 20 GM/30 ML UDC (FOR ORAL USE ONLY) PO SCH ×2 (14:35→21:10)
[2023-10-27] MEDS: THIAMINE HCL 100 MG TABLET (FP) PO SCH (21:10)
[2023-10-27] MEDS: SUVOREXANT 15 MG TABLET PO PRN (21:11)
[2023-10-27] MEDS ORDERED: SUVOREXANT 10 MG TABLET PO PRN (22:00)
[2023-10-28] MEDS: LACTULOSE 20 GM/30 ML UDC (FOR ORAL USE ONLY) PO SCH ×3 (06:59→21:12)
[2023-10-28] MEDS: PRENATAL VITAMINS W/ FOLIC ACID TABLET (FP) PO SCH (09:46)
[2023-10-28] MEDS: PARoxetine HCL 10 MG TABLET PO SCH (09:46)
[2023-10-28] MEDS: THIAMINE HCL 100 MG TABLET (FP) PO SCH (21:12)
[2023-10-28] MEDS: SUVOREXANT 15 MG TABLET PO PRN (21:12)
[2023-10-29] MEDS: LACTULOSE 20 GM/30 ML UDC (FOR ORAL USE ONLY) PO SCH ×3 (06:36→21:49)
[2023-10-29] MEDS: PARoxetine HCL 10 MG TABLET PO SCH (09:33)
[2023-10-29] MEDS: PRENATAL VITAMINS W/ FOLIC ACID TABLET (FP) PO SCH (09:34)
[2023-10-29] MEDS: SUVOREXANT 15 MG TABLET PO PRN (21:49)
[2023-10-29] MEDS: THIAMINE HCL 100 MG TABLET (FP) PO SCH (21:50)
[2023-10-30] MEDS ORDERED: NALTREXONE MICROSPHERES (VIVITROL) 380 MG DISP.SYRIN IM ONE (06:00)
[2023-10-30 06:54] VITALS: BP 116/74; PULSE 79; TEMP 97.4
[2023-10-30] MEDS: LACTULOSE 20 GM/30 ML UDC (FOR ORAL USE ONLY) PO SCH (06:58)
[2023-10-30] MEDS: PRENATAL VITAMINS W/ FOLIC ACID TABLET (FP) PO SCH (10:20)
[2023-10-30] MEDS: PARoxetine HCL 10 MG TABLET PO SCH (10:20)
== END 2023-10-30 10:30 | disposition home or self-care (01) | DRG 772 ==
LOC: YASAS 16:25 → Y5N 23:59
PROVIDERS: ADMIT Surgery; ATTEND Psychiatry & Neurology Pain Medicine
PROC: HZ42ZZZ Group Counseling for Substance Abuse Treatment, Cognitive-Behavioral (ICD-10-PCS; principal; 2023-10-25)
DX: F10.20 Alcohol dependence, uncomplicated (principal); F17.210 Nicotine dependence, cigarettes, uncomplicated; F10.282 Alcohol dependence with alcohol-induced sleep disorder; F39 Unspecified mood [affective] disorder; F41.9 Anxiety disorder, unspecified; F32.A Depression, unspecified; G47.00 Insomnia, unspecified; K21.9 Gastro-esophageal reflux disease without esophagitis; Z87.19 Personal history of other diseases of the digestive system; Z87.01 Personal history of pneumonia (recurrent)
CPT/HCPCS: 36415; 80053; 80307; 81003; 82962; 85027; 86780; 87635; J2315

== ENCOUNTER 2024-01-01 12:44 | Inpatient (IN) | payer OTHER ==
[2024-01-01 13:29] VITALS: BMI 27.1
[2024-01-01] MEDS ORDERED: NALOXONE HCL (KLOXXADO) 8 MG SPRAY NS PRN (14:22)
[2024-01-01] MEDS ORDERED: IBUPROFEN 400 MG TABLET (FP) PO PRN (14:22)
[2024-01-01] MEDS ORDERED: guaiFENesin 600 MG TABLET.ER (FP) PO PRN (14:22)
[2024-01-01] MEDS ORDERED: BISMUTH SUBSALICYLATE 524 MG/30 ML PO PRN (14:22)
[2024-01-01] MEDS ORDERED: IBUPROFEN 600 MG TABLET (FP) PO PRN (14:22)
[2024-01-01] MEDS ORDERED: BENZONATATE 200 MG CAPSULE PO PRN (14:22)
[2024-01-01] MEDS ORDERED: LOPERAMIDE HCL 2 MG CAPSULE PO PRN (14:22)
[2024-01-01] MEDS ORDERED: NALOXONE HCL 0.4 MG/ML VIAL IM PRN (14:22)
[2024-01-01] MEDS ORDERED: MAG HYDROX/AL HYDROX/SIMETH 30 ML UNIT-DOSE CUP PO PRN (14:22)
[2024-01-01] MEDS ORDERED: NICOTINE POLACRILEX 4 MG GUM BUC PRN (14:22)
[2024-01-01] MEDS ORDERED: POLYETHYLENE GLYCOL (HEALTHYLAX) 3350 17 GM PACKET PO PRN (14:22)
[2024-01-01] MEDS ORDERED: MAGNESIUM HYDROX 2400MG/30ML ORAL SUSPENSION 30 ML CUP PO PRN (14:22)
[2024-01-01] MEDS ORDERED: ACETAMINOPHEN 325 MG TABLET (FP) PO PRN (14:22)
[2024-01-01] MEDS ORDERED: NICOTINE 21 MG/24 HOURS TOPICAL PATCH TD PRN (14:22)
[2024-01-01] MEDS ORDERED: BENZOCAINE/MENTHOL (CHLORASEPTIC ) LOZENGE MM PRN (14:22)
[2024-01-01] MEDS ORDERED: DICYCLOMINE HCL 10 MG CAPSULE PO PRN (14:22)
[2024-01-01] MEDS ORDERED: ALBUTEROL SO4 HFA INHALER IH PRN (14:26)
[2024-01-01] MEDS: LORazepam 1 MG TABLET PO PRN (18:11)
[2024-01-01] MEDS: LORazepam 2 MG TABLET PO SCH (18:13)
[2024-01-01] MEDS: PANTOPRAZOLE 40 MG TABLET PO SCH (18:17)
[2024-01-01] MEDS: PANTOPRAZOLE 40 MG TABLET PO ONE (18:17)
[2024-01-01] MEDS: THIAMINE HCL 100 MG TABLET (FP) PO SCH (22:55)
[2024-01-01] MEDS: MELATONIN 5 MG TABLETS PO SCH (22:56)
[2024-01-02] MEDS: PRENATAL VITAMINS W/ FOLIC ACID TABLET (FP) PO SCH (10:23)
[2024-01-02] MEDS: METHOCARBAMOL 500 MG TABLET PO PRN (10:23)
[2024-01-02 10:54] LABS: POTASSIUM 4.1 mmol/L (3.5-5.1)
[2024-01-02 10:56] LABS: CALCIUM 9.2 mg/dL (8.5-10.1)
[2024-01-02 10:58] LABS: ALBUMIN 3.7 g/dl (3.4-5.0)
[2024-01-02 11:00] LABS: CREATININE 0.8 mg/dL (0.55-1.3)
[2024-01-02 11:01] LABS: TOT PROT 6.2 g/dl (6.4-8.2)
[2024-01-02 11:02] LABS: BILIRUBIN,TOTAL 1.5 mg/dL (0.2-1)
[2024-01-02 11:14] LABS: HEMATOCRIT 38.7 % (35.4-49); HEMOGLOBIN 12.9 GM/dL (11.7-16.9); MCH 32.2 pg (25.7-33.7); MCHC 33.3 g/dl (32.0-35.9); MEAN CELL VOLUME 96.5 fl (80-96); MEAN PLT VOLUME 7.6 fl (7.5-11.1); PLATELET COUNT 57 10^3/uL (134-434); RBC 4.01 M/mm3 (4.00-5.60); RDW 14.6 % (11.9-15.9); WHITE BLOOD COUNT 5.8 K/mm3 (4.0-10.0)
[2024-01-02] MEDS: ONDANSETRON *ODT* 4 MG TABLET SL PRN (12:08)
[2024-01-02] MEDS: GABAPENTIN 100 MG CAPSULE PO SCH (22:41)
[2024-01-02] MEDS: PARoxetine HCL 20 MG TABLET PO SCH (22:41)
[2024-01-03] MEDS: LORazepam 1 MG TABLET PO SCH (05:41)
[2024-01-03] MEDS: LACTULOSE 20 GM/30 ML UDC (FOR ORAL USE ONLY) PO SCH (18:44)
[2024-01-04] MEDS ORDERED: LORazepam 0.5 MG TABLET PO PRN
[2024-01-04] MEDS: LORazepam 0.5 MG TABLET PO SCH (05:38)
[2024-01-04 10:01] VITALS: BP 102/73; PULSE 116; RESP 16; TEMP 98
[2024-01-04 10:53] LABS: POTASSIUM 3.7 mmol/L (3.5-5.1)
[2024-01-04 11:00] LABS: ALBUMIN 3.8 g/dl (3.4-5.0); CREATININE 0.9 mg/dL (0.55-1.3)
[2024-01-04 11:02] LABS: BILIRUBIN,TOTAL 1.4 mg/dL (0.2-1); TOT PROT 6.6 g/dl (6.4-8.2)
[2024-01-04 11:03] LABS: CALCIUM 9.8 mg/dL (8.5-10.1)
[2024-01-05] MEDS ORDERED: LORazepam 0.5 MG TABLET PO ONE (05:00)
== END 2024-01-04 10:10 | disposition home or self-care (01) | DRG 775 ==
LOC: YASAS 12:44 → Y6N 17:20
PROVIDERS: ADMIT Allergy & Immunology; ATTEND Surgery
PROC: HZ2ZZZZ Detoxification Services for Substance Abuse Treatment (ICD-10-PCS; principal; 2024-01-01)
DX: F10.230 Alcohol dependence with withdrawal, uncomplicated (principal); F17.210 Nicotine dependence, cigarettes, uncomplicated; F33.41 Major depressive disorder, recurrent, in partial remission; F10.24 Alcohol dependence with alcohol-induced mood disorder; E72.20 Disorder of urea cycle metabolism, unspecified; J45.20 Mild intermittent asthma, uncomplicated; K21.9 Gastro-esophageal reflux disease without esophagitis; R74.8 Abnormal levels of other serum enzymes; Z86.11 Personal history of tuberculosis
CPT/HCPCS: 36415; 80053; 80307; 82140; 85027; 86780; 87635; 90832-95; 93005; 93010; Q0162

== ENCOUNTER 2024-02-25 17:19 | Inpatient (IN) | payer OTHER ==
[2024-02-25 18:03] VITALS: BMI 28.7
[2024-02-25] MEDS ORDERED: POLYETHYLENE GLYCOL (HEALTHYLAX) 3350 17 GM PACKET PO PRN (18:39)
[2024-02-25] MEDS ORDERED: guaiFENesin 600 MG TABLET.ER (FP) PO PRN (18:39)
[2024-02-25] MEDS ORDERED: ONDANSETRON *ODT* 4 MG TABLET SL PRN (18:39)
[2024-02-25] MEDS ORDERED: IBUPROFEN 400 MG TABLET (FP) PO PRN (18:39)
[2024-02-25] MEDS ORDERED: P-EPHED 60MG/TRIPROLIDI 2.5MG TABLET PO PRN (18:39)
[2024-02-25] MEDS ORDERED: BENZOCAINE/MENTHOL (CHLORASEPTIC ) LOZENGE MM PRN (18:39)
[2024-02-25] MEDS ORDERED: NICOTINE POLACRILEX 2 MG GUM BUC PRN (18:39)
[2024-02-25] MEDS ORDERED: MAGNESIUM HYDROX 2400MG/30ML ORAL SUSPENSION 30 ML CUP PO PRN (18:39)
[2024-02-25] MEDS ORDERED: DICYCLOMINE HCL 10 MG CAPSULE PO PRN (18:39)
[2024-02-25] MEDS ORDERED: MAG HYDROX/AL HYDROX/SIMETH 30 ML UNIT-DOSE CUP PO PRN (18:39)
[2024-02-25] MEDS ORDERED: LOPERAMIDE HCL 2 MG CAPSULE PO PRN (18:39)
[2024-02-25] MEDS ORDERED: BENZONATATE 200 MG CAPSULE PO PRN (18:39)
[2024-02-25] MEDS ORDERED: BISMUTH SUBSALICYLATE 524 MG/30 ML PO PRN (18:39)
[2024-02-25] MEDS: METHOCARBAMOL 500 MG TABLET PO PRN (22:31)
[2024-02-25] MEDS: MELATONIN 5 MG TABLETS PO SCH (22:31)
[2024-02-25] MEDS: hydrOXYzine PAMOATE 25 MG CAPSULE (FP) PO PRN (22:31)
[2024-02-25] MEDS: THIAMINE 100 MG TABLET PO SCH (22:31)
[2024-02-26] MEDS: PRENATAL VITAMINS W/ FOLIC ACID TABLET (FP) PO SCH (10:19)
[2024-02-26] MEDS: ACETAMINOPHEN 325 MG TABLET (FP) PO PRN (10:43)
[2024-02-26] MEDS: diazePAM 5 MG TABLET PO SCH (10:44)
[2024-02-26] MEDS: VENLAFAXINE HCL 25 MG TABLET PO SCH (11:12)
[2024-02-26 11:51] LABS: HEMOGLOBIN 11.4 GM/dL (11.7-16.9); MCH 31.8 pg (25.7-33.7); MCHC 32.5 g/dl (32.0-35.9); MEAN PLT VOLUME 6.9 fl (7.5-11.1); PLATELET COUNT 267 10^3/uL (134-434); RBC 3.57 M/mm3 (4.00-5.60); WHITE BLOOD COUNT 3.3 K/mm3 (4.0-10.0)
[2024-02-26 11:59] LABS: POTASSIUM 3.6 mmol/L (3.5-5.1)
[2024-02-26 12:05] LABS: CALCIUM 8.8 mg/dL (8.5-10.1)
[2024-02-26 12:06] LABS: BLOOD UREA NITROGEN 12.7 mg/dL (7-18)
[2024-02-26 12:09] LABS: CREATININE 0.7 mg/dL (0.55-1.3)
[2024-02-26 12:10] LABS: BILIRUBIN,TOTAL 1.1 mg/dL (0.2-1)
[2024-02-26 12:11] LABS: TOT PROT 5.3 g/dl (6.4-8.2)
[2024-02-26] MEDS: IBUPROFEN 600 MG TABLET (FP) PO PRN (17:30)
[2024-02-26] MEDS: GABAPENTIN 100 MG CAPSULE PO SCH (22:42)
[2024-02-26] MEDS: LITHIUM CARBONATE 300 MG CAPSULE PO SCH (22:58)
[2024-02-27] MEDS: LITHIUM CARBONATE 150 MG CAPSULE PO SCH (00:26)
[2024-02-27] MEDS: VENLAFAXINE HCL 37.5 MG E.R. CAPSULE PO SCH (10:04)
[2024-02-27] MEDS ORDERED: ALBUTEROL SO4 HFA INHALER IH PRN (14:15)
[2024-02-27] MEDS: PANTOPRAZOLE 40 MG TABLET PO SCH (15:15)
[2024-02-28] MEDS: diazePAM 5 MG TABLET PO SCH (05:30)
[2024-02-28] MEDS: diazePAM 5 MG TABLET PO PRN (10:21)
[2024-02-29] MEDS: diazePAM 5 MG TABLET PO SCH (05:29)
[2024-03-01] MEDS: diazePAM 5 MG TABLET PO ONE (05:44)
[2024-03-01] MEDS: NALTREXONE HCL 50 MG TABLET PO SCH (11:18)
[2024-03-01 12:41] VITALS: PULSE 74; RESP 16; TEMP 97.6
[2024-03-01 12:43] VITALS: BP 109/63
== END 2024-03-01 13:53 | disposition home or self-care (01) | DRG 775 ==
LOC: YASAS 17:19 → Y3N 18:54
PROVIDERS: ADMIT Allergy & Immunology; ATTEND Surgery
PROC: HZ2ZZZZ Detoxification Services for Substance Abuse Treatment (ICD-10-PCS; principal; 2024-02-25)
DX: F10.230 Alcohol dependence with withdrawal, uncomplicated (principal); F17.210 Nicotine dependence, cigarettes, uncomplicated; F10.282 Alcohol dependence with alcohol-induced sleep disorder; F10.24 Alcohol dependence with alcohol-induced mood disorder; F31.9 Bipolar disorder, unspecified; J45.909 Unspecified asthma, uncomplicated; K21.9 Gastro-esophageal reflux disease without esophagitis; R74.01 Elevation of levels of liver transaminase levels
CPT/HCPCS: 36415; 80053; 80178; 85027; 86780; 87811